=== PATIENT | male | born 1965 ===

== ENCOUNTER 2021-03-16 17:16 | Outpatient (REF) | payer OTHER, SELFPAY ==
[2021-03-16 19:32] LABS: HCT 49.5 % (40.0-50.0); HGB 16.2 g/dL (13.5-17.5); MCHC 32.7 % (32.0-36.0); MCV 88.6 fL (80-95); MPV 10.8 fL (8.0-11.0); Platelet Count 248 10^3/uL (130-400); RBC 5.59 10^6/uL (4.36-5.78); RDW 12.7 % (11.8-14.1); RDW-SD 41.6 fL; WBC 7.46 10^3/uL (4.4-10.8)
[2021-03-16 20:11] LABS: Hemoglobin A1C 5.5 % (<5.7)
[2021-03-16 20:24] LABS: ALT 100 U/L (16-63); AST 43 U/L (15-37); Alkaline Phosphatase 87 U/L (46-116); Anion Gap 10.4 mmol/L (3-11); BUN 21 mg/dL (7-18); Bilirubin, Total 0.9 mg/dL (0.2-1.0); CO2 27.6 mmol/L (21.0-32.0); CREATININE 1.1 mg/dL (0.70-1.30); Calcium 8.8 mg/dL (8.5-10.1); Chloride 107 mmol/L (98-107); Ferritin 165 ng/mL (26-388); Glucose 112 mg/dL (74-106); Sodium 145 mmol/L (136-145); Total Protein 6.9 g/dL (6.4-8.2)
== END 2021-03-16 17:17 | disposition home or self-care (01) ==
LOC: NCHCN 17:16
PROVIDERS: Visit Provider Family Medicine
DX: K75.81 Nonalcoholic steatohepatitis (NASH) (principal); R73.9 Hyperglycemia, unspecified
CPT/HCPCS: 80053; 85027; 82728; 83036

== ENCOUNTER 2022-01-24 18:06 | Outpatient (REF) | payer OTHER, SELFPAY ==
[2022-01-24 22:19] LABS: Abs Immature Grans 0.01 10^3/uL (0.0-0.06); Absolute Basophil Count 0.02 10^3/uL (0.0-0.2); Absolute Eosinophil Count 0.23 10^3/uL (0.0-0.7); Absolute Lymphocyte Count 2.56 10^3/uL (1.2-3.4); Absolute Monocyte Count 0.75 10^3/uL (0.1-0.8); Absolute Neutrophil Count 3.82 10^3/uL (1.2-6.7); Basophils % 0.3; Eosinophils % 3.1; HCT 46.5 % (40.0-50.0); HGB 15.1 g/dL (13.5-17.5); Immature Grans % 0.1; Lymphocytes % 34.6; MCH 28.9 pg (27.0-33.0); MCHC 32.5 % (32.0-36.0); MCV 89 fL (80-95); MPV 10.6 fL (8.0-11.0); Monocytes % 10.1; Neutrophils % 51.8; Platelet Count 243 10^3/uL (130-400); RBC 5.22 10^6/uL (4.36-5.78); RDW 12.6 % (11.8-14.1); RDW-SD 41.3 fL; WBC 7.39 10^3/uL (4.4-10.8)
[2022-01-24 22:46] LABS: ALT 66 U/L (16-63); AST 33 U/L (15-37); Alkaline Phosphatase 78 U/L (46-116); Anion Gap 9.7 mmol/L (3-11); BUN 19 mg/dL (7-18); CO2 26.3 mmol/L (21.0-32.0); CREATININE 0.9 mg/dL (0.70-1.30); Calcium 8.7 mg/dL (8.5-10.1); Calculated LDL 59 mg/dL (<100); Chloride 108 mmol/L (98-107); Cholesterol 127 mg/dL (<200); Glucose 105 mg/dL (74-106); HDL Cholesterol 45 mg/dL (40-60); Potassium 3.9 mmol/L (3.5-5.1); Sodium 144 mmol/L (136-145); Total Protein 6.7 g/dL (6.4-8.2); Triglyceride 115 mg/dL (<150)
== END 2022-01-24 18:07 | disposition home or self-care (01) ==
LOC: NCHCN 18:06
PROVIDERS: Visit Provider Family Medicine
DX: D75.1 Secondary polycythemia (principal); I10 Essential (primary) hypertension; K75.81 Nonalcoholic steatohepatitis (NASH); E78.5 Hyperlipidemia, unspecified
CPT/HCPCS: 80053; 80061; 85025

== ENCOUNTER 2022-07-24 17:22 | Outpatient (REF) | payer OTHER, SELFPAY ==
--- NOTE | 2022-07-24 17:00 | SKI_PTH ---
PATIENT: Alfredo Mejia LOC: [facility] U#:[id number] AGE/SX: 57/M ROOM: RE07/24/[address]: Graham Levy : 1965 BED: DIS: 07/24/2022 SPEC #: [id number] RECD: 07/24/22 18:14 STATUS: NIKKI REQ #: [id number] ALDO: 07/24/22 17:[address]: Graham Levy DEPT: Surgical Specimen RECD BY: Luisa Guerra ENTERED: 07/24/22 18:14 SP TYPE: DEBORAH CORREA DR: Unknown,Unknown Tissues: 1 - SKIN BIOPSY(SHAVE/PUNCH) Procedures: SKIN LEVEL 4 Comments: [id number]
== END 2022-07-24 17:23 | disposition home or self-care (01) ==
LOC: NCHCN 17:22
PROVIDERS: Visit Provider Family Medicine
DX: D22.5 Melanocytic nevi of trunk (principal)
CPT/HCPCS: 88305

== ENCOUNTER 2023-01-21 18:45 | Outpatient (REF) | payer OTHER, SELFPAY ==
[2023-01-21 20:17] LABS: HGB 15.5 g/dL (13.5-17.5); MCH 29.4 pg (27.0-33.0); MCHC 33.7 % (32.0-36.0); MCV 87 fL (80-95); MPV 9.9 fL (8.0-11.0); Platelet Count 238 10^3/uL (130-400); RBC 5.27 10^6/uL (4.36-5.78); RDW 12.8 % (11.8-14.1); RDW-SD 40.9 fL; WBC 6.44 10^3/uL (4.4-10.8)
[2023-01-21 20:34] LABS: ALT 49 U/L (16-63); AST 36 U/L (15-37); Albumin 3.9 g/dL (3.4-5.0); Alkaline Phosphatase 70 U/L (46-116); BUN 20 mg/dL (7-18); Bilirubin, Total 1.3 mg/dL (0.2-1.0); CREATININE 0.9 mg/dL (0.70-1.30); Calcium 9.1 mg/dL (8.5-10.1); Chloride 110 mmol/L (98-107); Estimated GFR 100.86 (mL/min/1.73m2); Glucose 113 mg/dL (74-106); Potassium 3.9 mmol/L (3.5-5.1); Sodium 146 mmol/L (136-145)
[2023-01-21 21:35] LABS: Hemoglobin A1C 5.3 % (<5.7)
== END 2023-01-21 18:46 | disposition home or self-care (01) ==
LOC: NCHCN 18:45
PROVIDERS: Visit Provider Family Medicine
DX: Z00.00 Encounter for general adult medical examination without abnormal findings (principal); K75.81 Nonalcoholic steatohepatitis (NASH); R73.09 Other abnormal glucose
CPT/HCPCS: 80053; 85027; 83036

== ENCOUNTER 2023-10-14 16:34 | Outpatient (REF) | payer OTHER, SELFPAY ==
[2023-10-14 16:04] LABS: Anion Gap 5.1 mmol/L (3-11); BUN 20 mg/dL (7-18); CO2 30.9 mmol/L (21.0-32.0); Calcium 8.5 mg/dL (8.5-10.1); Chloride 105 mmol/L (98-107); Estimated GFR 88.33 (mL/min/1.73m2); Glucose 89 mg/dL (74-106); Magnesium 2.1 mg/dL (1.8-2.4); Potassium 4.3 mmol/L (3.5-5.1); Sodium 141 mmol/L (136-145)
== END 2023-10-14 16:35 | disposition home or self-care (01) ==
LOC: NCHCN 16:34
PROVIDERS: PCP Family Medicine; Visit Provider Family Medicine
DX: E87.6 Hypokalemia (principal); I10 Essential (primary) hypertension
CPT/HCPCS: 80048; 83735